=== PATIENT | female | born 1945 | race Two or more races ===

== ENCOUNTER 2018-11-11 06:00 | Outpatient (CLI) | payer OTHER ==
[2018-11-11] MEDS ORDERED: NORVASC5 MG PO (17:09)
[2018-11-11] MEDS ORDERED: LISINOPRIL20 MG PO (17:09)
[2018-11-11] MEDS ORDERED: PLAVIX75 MG PO (17:10)
[2018-11-11] MEDS ORDERED: 8 HOUR650 MG PO (17:10)
[2018-11-11] MEDS ORDERED: SIMVASTATIN20 MG PO (17:10)
== END 2018-11-11 08:00 | disposition home or self-care (01) ==
LOC: EKG 06:00 → ADM 14:15 → EKG 11-12 06:00 → CIR.AMB 11-16 13:30 → EDSTATUS 11-16 14:15 → CIR.AMB 11-16 14:15
DX: Z01.810 Encounter for preprocedural cardiovascular examination (principal); G56.01 Carpal tunnel syndrome, right upper limb; I10 Essential (primary) hypertension